=== PATIENT | male | born 1995 | race Caucasian/White ===

== ENCOUNTER 2016-11-30 12:17 | Emergency (ER) | payer OTHER ==
[2016-11-30 12:22] VITALS: TEMP 98.1
--- NOTE | 2016-11-30 13:28 | EDPHY ---
H & P Stated Complaint: laceration to 3rd digit l hand/cut with knife HPI/ROS: CHIEF COMPLAINT: Finger laceration HISTORY OF PRESENT ILLNESS: Patient complains of laceration of the left middle finger. This happened within the past hour. He was using a knife to cut a piece of polyurethane. This was a clean knife inside the home. No difficulty extending or flexing the finger. The bleeding has been described as moderate. Minimally painful at rest. Somewhat painful if he touches the area or moves the finger. No numbness or tingling. No other associated complaints or modifying factors. TIME OF INJURY: Less than 1 hour ago TETANUS STATUS: Less than 4 years ago REVIEW OF SYSTEMS: Ten systems reviewed and are negative unless otherwise noted in the HPI EXAMINATION General Appearance: Alert, no distress Head: normocephalic, atraumatic Cardiovascular: Pulses normal throughout. Symmetric radial pulses 2+. Brisk cap refill Neurological: A&O, sensory symmetric, strength symmetric. Excellent strength of the interossei muscles Skin: Warm and dry, no rash. 2 cm laceration, oblique over the middle phalanx of the left middle finger, dorsal. No foreign body Extremities: Mild tenderness of the area laceration. Extension and flexion of the fingers is fully intact without deficit or any weakness. Neurovascular intact distally. DIFFERENTIAL DIAGNOSES: Including but not limited to laceration, complex laceration, laceration with tendon injury, laceration with foreign body MDM: 12:40 p.m. Lacerations the dorsum of the left middle finger, middle phalanx. Neurovascular intact. No tendinous injury. Tetanus up-to-date. Wound will be irrigated and closed. 1:25 p.m. Superficial laceration on the dorsum of the left middle finger middle phalanx. The wound has been irrigated and closed without complication. Good approximation of wound borders. He is neurovascular intact. Post suturing, he has excellent strength in the finger including flexion-extension without deficit. We discussed routine wound care including daily bacitracin, wound coverage. Return here in 7-10 days for suture removal. Return sooner for erythema, purulence, fluctuance, pain or fever. He is comfortable with this plan and discharged home stable condition PROCEDURE: Digital Block Indication: Finger laceration Consent: Verbal Location: Left middle finger, dorsal, middle phalanx Anesthesia: Lidocaine 1% plain, 0.25% Marcaine plain, 5mL Description: Base of the left finger was prepped with chlorhexidine. 5 mL as above were infused. Good anesthesia. Tolerated well without complication. Neurovascular intact Complications: None PROCEDURE: Laceration repair Consent: Verbal Location: Left middle finger, dorsal, middle phalanx Length of repair: 2 cm Complexity: Simple Layer involvement: Single without involvement of the extensor tendon Anesthesia: Digital block as above Irrigation: Extensive Debridement: None Procedure description: Following good anesthesia, the wound was copiously irrigated. Wound bed was explored and there is no foreign body noted. Wound borders were approximated well with good hemostasis. Tolerated well without complication. Suture/Staple material: 5-0 Prolene, 5 simple interrupted sutures Wound care: Routine as discussed Suture/Staple removal: 7-10 Days SUTURE STAPLE REMOVAL: 7-10 days ED Precautions: Worsening pain. Erythema, edema, cyanosis, pallor, paresthesia or anesthesia. SUPERVISION: This patient was independently evaluated without direct examination by the attending physician. Case was discussed with attending physician. Source: Patient Exam Limitations: No limitations - Personal History Current Tetanus/Diphtheria Vaccine: Yes - Medical/Surgical History Hx Asthma: No Hx Chronic Respiratory Disease: No Hx Diabetes: No Hx Cardiac Disease: No Hx Renal Disease: No Hx Cirrhosis: No Hx Alcoholism: No Hx HIV/AIDS: No Hx Splenectomy or Spleen Trauma: No Other PMH: denies - Social History Smoking Status: Never smoked Constitutional: Initial Vital Signs Temperature (C) 98.1 F 11/30/16 12:19 Heart Rate 68 11/30/16 12:19 Respiratory Rate 18 11/30/16 12:19 Blood Pressure 133/66 H 11/30/16 12:19 O2 Sat (%) 98 11/30/16 12:19 O2 Delivery Mode Room Air Allergies/Adverse Reactions: No Known Allergies Allergy (Unverified 11/30/16 12:18) Home Medications: Medication Instructions Recorded NK [No Known Home Meds] 11/30/16 Departure - Departure Disposition: Home, Routine, Self-Care Clinical Impression: Laceration of finger of left hand Qualifiers: Encounter type: initial encounter Finger: middle finger Damage to nail status: without damage Foreign body presence: without foreign body Qualified Code(s): S61.213A - Laceration without foreign body of left middle finger without damage to nail, initial encounter Condition: Good Instructions: Care For Your Stitches (ED), Laceration (ED) Additional Instructions: 1. Daily wound care as discussed 2. Return here in 7-10 days for suture removal 3. Return here for any signs of infection as discussed should they develop Referrals: Sage Reddy MD [Primary Care Provider] - As per Instructions
[2016-11-30 13:39] VITALS: BP 126/62; PULSE 64; RESP 16; O2SAT 97
== END 2016-11-30 13:39 | disposition home or self-care (01) ==
PROC: 0HQGXZZ Repair Left Hand Skin, External Approach (ICD-10-PCS; principal; 2016-11-30)
DX: S61.213A Laceration without foreign body of left middle finger without damage to nail, initial encounter (principal); W26.0XXA Contact with knife, initial encounter; Y92.009 Unspecified place in unspecified non-institutional (private) residence as the place of occurrence of the external cause